=== PATIENT | female | born 1970 | race African-American/Black ===

== ENCOUNTER 2018-01-01 13:47 | Emergency (ER) | payer OTHER ==
[2018-01-01 14:03] VITALS: BP 143/78; PULSE 65; TEMP 98.1; BMI 30.2
--- NOTE | 2018-01-01 14:22 | PDOC ---
Suture Removal/Wound Check HPI - History of Present Illness Chief Complaint: Revisit,Wound Recheck Stated Complaint: PACKAGE DRESSING Time Seen by Provider: 01/01/18 14:07 History Source: Yes: Patient Exam Limitations: Yes: No Limitations Treated at: [facility] Date of Last ED visit: 12/30/17 - Previous ED Treatment Type of procedure performed on last visit: Yes: I&D of Abscess Tetanus Immunization: Yes: Up to Date Antibiotics Prescribed: No Past History - Past Medical History Allergies/Adverse Reactions: Allergies Allergy/AdvReac Type Severity Reaction Status Date / Time aspirin Allergy Severe Difficulty Verified 12/30/17 12:51 Breathing Home Medications: Ambulatory Orders Quetiapine Fumarate [Seroquel -] 25 mg PO HS 02/21/14 Mirtazapine [Remeron -] 5 mg PO DAILY 12/30/17 Oxycodone HCl/Acetaminophen [Percocet 5-325 mg Tablet] 1 - 2 tab PO BID Asthma: Yes Cardiac Disorders: Yes (dextrocardia, murmur) COPD: No - Immunization History Immunization Up to Date: Yes - Suicide/Smoking/Psychosocial Hx Smoking History: Current every day smoker Have you smoked in the past 12 months: Yes Number of Cigarettes Smoked Daily: 10 Information on smoking cessation initiated: Yes 'Breaking Loose' booklet given: 01/01/18 Hx Alcohol Use: No Drug/Substance Use Hx: No Substance Use Type: None Suture Removal/Wound Check PE - Physical Exam Laceration/Wound Check Symptoms: reports: None Current Severity Level: None Maximum Severity Level: None Pain Localization: None *Review of Systems - Review of Systems Constitutional: No: Symptoms Reported Integumentary: No: Symptoms Reported, Erythema All Other Systems: Reviewed and Negative Medical Decision Making - Medical Decision Making 01/01/18 14:23 There is a 1 cm opening to right axilla with no surrounding erythema, no warmth , no induration no evidence of a cellulitis. 1 inch packing removed without difficulty. Not requiring further packing no drainage noted, Dry dressing applied. Follow-up care instructions given to patient. 01/01/18 14:23 Culture primary plates with no evidence of growth, broth will be sub cultured. 01/01/18 16:21 *DC/Admit/Observation/Transfer Diagnosis at time of Disposition: Encounter for wound re-check - Discharge Dispostion Disposition: HOME Condition at time of disposition: Stable Admit: No - Referrals Referrals: Zuhair Huff MD [Primary Care Provider] - - Patient Instructions Printed Discharge Instructions: DI for Wound Infection Additional Instructions: Please monitor for any increased redness swelling or signs of infection If any of the above return to ER - Post Discharge Activity
== END 2018-01-01 14:37 | disposition home or self-care (01) ==
LOC: JERFT 13:47
DX: Z48.01 Encounter for change or removal of surgical wound dressing (principal)
CPT/HCPCS: 99281-25

== ENCOUNTER 2019-01-27 22:48 | Emergency (ER) | payer OTHER ==
[2019-01-27 23:06] VITALS: BP 98/54; PULSE 79; TEMP 98.3; BMI 25.9
--- NOTE | 2019-01-28 | PDOC ---
History of Present Illness - General Chief Complaint: Abscess Boil Stated Complaint: BOIL Time Seen by Provider: 01/27/19 23:59 - History of Present Illness Initial Comments: Amy Ogden is a 48yo woman with a PMH of HLD, sciatica, and several previous abscesses who presents with a "boil" on the left labia majora. She went to urgent care 6 days ago and was told to use warm compresses over the area , which she has been doing 2-3 times per day. She says that since starting the compresses, the pain and swelling has gotten worse. She has not noticed any drainage or bleeding from the area. She denies fevers, chills, spreading redness , or red streaking from the area. She states that the pain is so severe at this point that she is unable to walk normally. She has had several abscesses in the past but never any in the groin; previously they were located in the groin crease and axilla. Past History - Past Medical History Allergies/Adverse Reactions: Allergies Allergy/AdvReac Type Severity Reaction Status Date / Time aspirin Allergy Severe Difficulty Verified 12/30/17 12:51 Breathing Home Medications: Ambulatory Orders Quetiapine Fumarate [Seroquel -] 25 mg PO HS 02/21/14 Mirtazapine [Remeron -] 5 mg PO DAILY 12/30/17 Oxycodone HCl/Acetaminophen [Percocet 5-325 mg Tablet] 1 - 2 tab PO BID Asthma: Yes Cardiac Disorders: Yes (dextrocardia, murmur) COPD: No - Immunization History Immunization Up to Date: Yes - Suicide/Smoking/Psychosocial Hx Smoking History: Current every day smoker Have you smoked in the past 12 months: Yes Number of Cigarettes Smoked Daily: 24 Information on smoking cessation initiated: No 'Breaking Loose' booklet given: 01/01/18 Hx Alcohol Use: No Drug/Substance Use Hx: No Substance Use Type: None Review of Systems - Review of Systems Comments:: General: No fevers, no chills, no weight or appetite change, no malaise HEENT: No changes in vision, no changes in hearing, no congestion, no sore throat CV: No chest pain, no palpitations, no LE edema Pulm: No SOB, no cough, no wheezing GI: No nausea or vomiting, no change in bowel habits, no melena : No frequency, no urgency, no dysuria. +Boil, see HPI Musc: No back pain, no joint swelling, no recent injury Skin: No rash, no lesions, no erythema Endo: No excessive thirst, no heat/cold intolerance Heme: No unusual bruising or bleeding, no swollen glands Neuro: No syncope, no numbness/tingling, no focal weakness Vasc: No claudication Psych: No recent change in mood, no SI or HI *Physical Exam - Vital Signs Last Vital Signs Temp Pulse Resp BP Pulse Ox 98.3 F 79 19 98/54 L 100 01/27/19 23:03 01/27/19 23:03 01/27/19 23:03 01/27/19 23:03 01/27/19 23:03 - Physical Exam Comments: General: Uncomfortable but in no acute distress HEENT: PERRL, EOMI, MMM, voice normal Cards: RRR, no murmur appreciated Pulm: Comfortable on room air Abd: Soft, nontender, nondistended Pelvic: Posterior left labia majora w/ quarter-sized abscess w/o drainage or bleeding. Overlying erythema, induration but no erythema in surrounding tissue. Swelling located more laterally in labia; no abscess/swelling/erythema on mucosal surface Ext: Atraumatic. No LE edema. ROM intact. Vasc: Extremities WWP. Neuro: A&Ox3, CN grossly intact, normal speech, motor/sensory grossly intact and symmetric Psych: Mood appropriate to situation Medical Decision Making - Medical Decision Making 01/28/19 00:24 Amy Ogden is a 48yo woman with a PMH of HLD, sciatica, and several previous abscesses who presents with a left posterior labial abscess. - Exam c/w abscess on left labia majora. No mucosal surface involvement, unlikely to be bartholin's - Plan to drain abscess at bedside 01/28/19 01:10 - Left labial abscess drained at bedside. The area was thoroughly cleaned with chlorhexadine and allowed to dry. 3cc of 1% lidocaine was used to anesthetize the abscess with a field block. A 15 blade scalpel was used to make an approximately 1cm incision in the center of the abscess with immediate expression of 1-2cc of liliya pus and some purulent bloody fluid. The interior of the abscess was explored with a cotton swab to ensure there were no secondary , loculated areas. Clean gauze was placed over the incision for any continued bleeding or drainage. - Home care instructions were discussed with Ms Ogden at length including use of acetaminophen/ibuprofen for pain control, warm compresses, and sitz baths. She will follow up with Dr Huff. Seen with Dr Lundberg. Merary Branhamabe PGY1 *DC/Admit/Observation/Transfer Diagnosis at time of Disposition: Abscess of labia majora - Discharge Dispostion Disposition: HOME Condition at time of disposition: Stable Decision to Admit order: No - Referrals Referrals: Zuhair Huff MD [Primary Care Provider] - - Patient Instructions Printed Discharge Instructions: DI for Incision and Drainage of a Skin Abscess Additional Instructions: Discharge Instructions: You were seen in the emergency department for an abscess. The abscess was drained. Home Care and Follow Up: - You may use over the counter medications as needed for pain at home. 650- 1000mg acetaminophen (Tylenol) or 600mg ibuprofen (Motrin or Advil) can be used every 6-8 hours. If needed for continued pain, these medications may be alternated every 3-4 hours. For example, if you take ibuprofen at 9am, you may take acetaminophen at noon, ibuprofen at 3pm, etc. - It is strongly recommended that you take ibuprofen with food to help prevent stomach irritation. If you are taking it for more than a day or two, you may consider taking an acid medication such as Pepcid or Xantac, available over the counter, to protect your stomach. This should be taken first thing in the morning 30-60 minutes before any food or medications. - You will probably have continued drainage and some bleeding from the abscess for the next few days. Use a menstrual pad or dry gauze for any drainage. - Continue to use warm compresses over the area of the abscess until your symptoms resolve - Soak in a sit bath for 5-10 minutes at least 3 times per day. Fill the tub or a basin with plain warm water, deep enough to cover your abscess. Sit in the water and soak the affected area. This will help keep the area clean and help with pain and healing. - If your pain does not improve over the next week, see your regular doctor for follow up. - Seek immediate medical care if you have significant worsening of your symptoms , increased pain and redness around the abscess, develop fever to 101F, have red streaking from the abscess, or you have any other medical emergency. - Post Discharge Activity
--- NOTE | 2019-01-28 00:39 | PDOC ---
Attending Attestation - Resident Resident Name: Merary Ortiz - ED Attending Attestation I have performed the following: I have examined & evaluated the patient, The case was reviewed & discussed with the resident, I agree w/resident's findings & plan, Exceptions are as noted - HPI HPI: 01/28/19 00:36 48yo F hx HL, sciatica, previous vaginal "boils" presents to ED with L labial abscess x6 days. Went to urgent care 6 days ago and they recommended warm compresses. She states since then, the boil has come to a head and has become very painful. Denies bleeding or drainage. She does shave the area. Has had previous abscesses in the groin and in the axilla that resolved with drainage. Tried tylenol for pain with minimal relief. DEnies fevers, chills, N/V/D. Denies CP, SOB, headache, weakness/numbness, dizziness. +Social etoh and weekly marijuana use - Physicial Exam PE: 01/28/19 00:48 agree with resident exam - Medical Decision Making 01/28/19 00:48 48yo F presents to the ED with L labial abscess, not in bartholin gland area. No systemic signs of infection. Vitals with mildly low BP, although pt states her BP is usually in 90s/60s Plan for I&D with local anesthesia 01/28/19 01:35 I&D with purulent drainage (see Dr. Ortiz's note) Pt feels better, rpt BP 127/81 Clinically stable for DC home with PMD f/u I discussed the physical exam findings, ancillary test results and final diagnoses with the patient. I answered all of the patient's questions. The patient was satisfied with the care received and felt comfortable with the discharge plan and treatment plan. The patient will call their primary care physician within 24 hours to arrange follow-up and will return to the Emergency Department with any new, persistent or worsening symptoms.
[2019-01-28] MEDS ORDERED: LIDOCAINE HCL 1%, 10 MG/ML (50 mL VIAL) SQ ONE (00:47)
[2019-01-28] MEDS ORDERED: LIDOCAINE HCL 1%, 10 MG/ML (20ML VIAL) ONE (00:49)
[2019-01-28] MEDS ORDERED: ACETAMINOPHEN 325 MG TABLET (FP) PO ONE (01:13)
[2019-01-28] MEDS ORDERED: ACETAMINOPHEN 325 MG TABLET (FP) ONE (01:33)
== END 2019-01-28 02:03 | disposition home or self-care (01) ==
LOC: JER 22:48
PROC: 0U9M0ZZ Drainage of Vulva, Open Approach (ICD-10-PCS; principal; 2019-01-27)
DX: N76.4 Abscess of vulva (principal)
CPT/HCPCS: 56405; 99281-25

== ENCOUNTER 2019-06-12 01:48 | Emergency (ER) | payer OTHER ==
[2019-06-12 02:10] VITALS: BP 102/71; PULSE 75; TEMP 98.3; BMI 25.2
--- NOTE | 2019-06-12 02:56 | PDOC ---
History of Present Illness - General Chief Complaint: Abscess Boil Stated Complaint: PAIN/RECTAL PROBLEM Time Seen by Provider: 06/12/19 02:56 History Source: Patient - History of Present Illness Initial Comments: 06/12/19 03:03 49 year old female with PMH of HLD, sciatica, and several previous abscesses c/ o buttocks abscess. patient started on bactrim by Sleep Tech Dr. schaefer 3 days ago. reports that abscess is big and unable to sit due to pain. denies fever/chills. 06/12/19 04:07 Past History - Past Medical History Allergies/Adverse Reactions: Allergies Allergy/AdvReac Type Severity Reaction Status Date / Time aspirin Allergy Severe Difficulty Verified 06/12/19 02:10 Breathing Home Medications: Ambulatory Orders Quetiapine Fumarate [Seroquel -] 25 mg PO HS 02/21/14 Mirtazapine [Remeron -] 5 mg PO DAILY 12/30/17 Oxycodone HCl/Acetaminophen [Percocet 5-325 mg Tablet] 1 - 2 tab PO BID Clindamycin [Cleocin -] 150 mg PO Q6H #40 capsule 06/12/19 Asthma: Yes Cardiac Disorders: Yes (dextrocardia, murmur) COPD: No - Immunization History Immunization Up to Date: Yes - Psycho Social/Smoking Cessation Hx Smoking History: Current every day smoker Have you smoked in the past 12 months: Yes Number of Cigarettes Smoked Daily: 20 Information on smoking cessation initiated: Yes 'Breaking Loose' booklet given: 01/01/18 Hx Alcohol Use: No Drug/Substance Use Hx: No Substance Use Type: None Review of Systems - Review of Systems Able to Perform ROS?: Yes Is the patient limited [place] proficient: No Constitutional: No: Symptoms Reported, See HPI, Chills, Diaphoresis, Fever, Loss of Appetite, Malaise, Night Sweats, Weakness, Weight Stable, Unintentional Wgt. Loss, Unexplained wgt Loss, Other Musculoskeletal: No: Symptoms Reported, See HPI, Back Pain, Gout, Joint Pain, Joint Swelling, Muscle Pain, Muscle Weakness, Neck Pain, Joint Stiffness, Other Integumentary: Yes: Other (abscess). No: Symptoms Reported, See HPI, Bruising, Change in Color, Change in Hair/Nails, Dryness, Erythema, Flushing, Lesions, Lumps, Pallor, Pruritus, Rash, Sweating *Physical Exam - Vital Signs Last Vital Signs Temp Pulse Resp BP Pulse Ox 98.3 F 75 18 102/71 99 06/12/19 02:08 06/12/19 02:08 06/12/19 02:08 06/12/19 02:08 06/12/19 02:08 - Physical Exam General Appearance: Yes: Appropriately Dressed Rectal Exam: positive: normal exam, normal rectal tone, other (no pain with rectal exam. right buttocks fluctuant olive size mass. ) Procedures - Consent Consent obtained: Verbal - Incision and Drainage I&D Site: Right: Buttock Betadine cleansed: Yes Anesthesia: 1% Lidocaine Volume(ml): 2 (thick yellow pus drainage) Blade Size: 11 Iodinated Packin/ in Plain Packing: Yes Complications: none Dressing: Yes Progress: 06/12/19 06:50 packing placed. patient is advised to return for wound check in 2 days. antibiotics changed to clindamycin ED Progress Note - Progress Note Progress Note: 06/12/19 04:11 A: right buttock abscess P: see procedure notes 06/12/19 06:50 Discharge - Discharge Information Problems reviewed: Yes Clinical Impression/Diagnosis: Abscess of buttock, right - Additional Discharge Information Prescriptions: Clindamycin [Cleocin -] 150 mg PO Q6H #40 capsule - Follow up/Referral Referrals: Zuhair Huff MD [Primary Care Provider] - - Patient Discharge Instructions Patient Printed Discharge Instructions: DI for Incision and Drainage of a Skin Abscess Additional Instructions: apply warm compress to the area retun in 2 days for a wound check - Post Discharge Activity Work/Back to School Note: Back to Work
--- NOTE | 2019-06-12 02:58 | PDOC ---
*Physical Exam - Vital Signs Last Vital Signs Temp Pulse Resp BP Pulse Ox 98.3 F 75 18 102/71 99 06/12/19 02:08 06/12/19 02:08 06/12/19 02:08 06/12/19 02:08 06/12/19 02:08 Medical Decision Making - Medical Decision Making 06/12/19 02:58 Patient seen by the advanced practice provider under my direct supervision. Ancillary testing reviewed as necessary. I agree with plan as outlined by the advanced practice provider. Discharge - Discharge Information Problems reviewed: Yes Clinical Impression/Diagnosis: Abscess of buttock, right - Additional Discharge Information Prescriptions: Clindamycin [Cleocin -] 150 mg PO Q6H #40 capsule - Follow up/Referral Referrals: Zuhair Huff MD [Primary Care Provider] - - Patient Discharge Instructions Patient Printed Discharge Instructions: DI for Incision and Drainage of a Skin Abscess Additional Instructions: apply warm compress to the area retun in 2 days for a wound check - Post Discharge Activity Work/Back to School Note: Back to Work
== END 2019-06-12 04:47 | disposition home or self-care (01) ==
LOC: JER 01:48
PROC: 0J990ZZ Drainage of Buttock Subcutaneous Tissue and Fascia, Open Approach (ICD-10-PCS; principal; 2019-06-12)
DX: L02.31 Cutaneous abscess of buttock (principal); Z88.6 Allergy status to analgesic agent
CPT/HCPCS: 10060; 87070; 87186; 87205; 99282-25

== ENCOUNTER 2019-10-20 15:36 | Emergency (ER) | payer OTHER ==
[2019-10-20 15:53] VITALS: BP 104/63; PULSE 63; TEMP 98.1; BMI 20.1
--- NOTE | 2019-10-20 17:21 | PDOC ---
History of Present Illness - General Chief Complaint: Pain, Acute Stated Complaint: URINARY PROBLEM History Source: Patient Exam Limitations: No Limitations - History of Present Illness Initial Comments: 10/20/19 17:14 Patient is a 49 year old female with h/o HLD, ovarian cyst, abscess - MRSA, psychiatric problems c/o anal itching x 5 months 40 lbs loss in 6 months. Patient states she has been to her doctor's several times for this and was given on anti-itch cream for the rectum with no improvement in symptoms. Patient states that she thinks that she has worms and has been on 3 courses of worm medicine despite not seeing any worms per rectum. However after these courses she still continues to have itching to the anus. She states that her doctor has drawn blood work x2 and has returned with normal results. She is concerned that she still has worms or she has some GI issues. She has normal bowel movement no rectal bleeding. She is also concerned that she could have MRSA in her rectum. She has also seen [facility] SU[facility] COORDINATOR for the issue and had a normal exam. She denies fever, chills, nausea, vomiting, abdominal pain, rectal bleeding. Patient is interested in receiving referral to GI and to infectious diseases. PMD: Dr. Ferrer PMHX: as above PSOCHX: (+) cig 1ppd, (-) etoh, (-) drug ALL: ASA GENERAL/CONSTITUTIONAL: [No fever or chills. No weakness. No weight change.] HEAD, EYES, EARS, NOSE AND THROAT: [No change in vision. No ear pain or discharge. No sore throat.] CARDIOVASCULAR: [No chest pain or shortness of breath.] RESPIRATORY: [No cough, wheezing, or hemoptysis.] GASTROINTESTINAL: [No nausea, vomiting, diarrhea or constipation. No rectal bleeding.] GENITOURINARY: [No dysuria, frequency, or change in urination.] MUSCULOSKELETAL: [No joint or muscle swelling or pain. No neck or back pain.] SKIN AND BREASTS: [No rash or easy bruising.] NEUROLOGIC: [No headache, vertigo, loss of consciousness, or loss of sensation.] PSYCHIATRIC: [No depression or anxiety.] ENDOCRINE: [No increased thirst. No abnormal weight change.] HEMATOLOGIC/LYMPHATIC: [No anemia, easy bleeding, or history of blood clots.] ALLERGIC/IMMUNOLOGIC: [No hives or skin allergy. No latex allergy.] GENERAL: [The patient is awake, alert, and fully oriented, in no acute distress. ] HEAD: [Normal with no signs of trauma.] EYES: [Pupils equal, round and reactive to light, extraocular movements intact, sclera anicteric, conjunctiva clear.] ENT: [Ears normal, nares patent, oropharynx clear without exudates. Moist mucous membranes.] NECK: [Normal range of motion, supple without lymphadenopathy, JVD, or masses.] LUNGS: [Breath sounds equal, clear to auscultation bilaterally. No wheezes, and no crackles.] HEART: [Regular rate and rhythm, normal S1 and S2 without murmur, rub.] ABDOMEN: [Soft, nontender, normoactive bowel sounds. No guarding, no rebound. No masses.] RECTUM: Small hemorrhoid externally nontender, no bleeding not thrombosed, no worms noted, no tenderness in this rectally, no hemorrhoids internally, no bleeding. EXTREMITIES: [Normal range of motion, no edema. No clubbing or cyanosis. No cords, erythema, or tenderness.] NEUROLOGICAL: [Cranial nerves II through XII grossly intact. Normal speech, normal gait.] PSYCH: [Normal mood, normal affect.] SKIN: [Warm, Dry, normal turgor, no rashes or lesions noted.] Past History - Past Medical History Allergies/Adverse Reactions: Allergies Allergy/AdvReac Type Severity Reaction Status Date / Time aspirin Allergy Severe Difficulty Verified 10/20/19 15:45 Breathing Home Medications: Ambulatory Orders Quetiapine Fumarate [Seroquel -] 25 mg PO HS 02/21/14 Mirtazapine [Remeron -] 7.5 mg PO DAILY 12/30/17 Albuterol Sulfate Inhaler - [Ventolin Hfa Inhaler -] 1 - 2 inh PO Q4H PRN Budesonide [Pulmicort Flexhaler] 1 dose IN DAILY 10/20/19 Cyclobenzaprine HCl [Flexeril -] 10 mg PO HS 10/20/19 Cyproheptadine [Periactin -] 4 mg PO HS 10/20/19 Rosuvastatin Calcium [Crestor] 20 mg PO HS 10/20/19 Asthma: Yes Cardiac Disorders: Yes (dextrocardia, murmur) COPD: No - Immunization History Immunization Up to Date: Yes - Psycho Social/Smoking Cessation Hx Smoking History: Current every day smoker Have you smoked in the past 12 months: Yes Number of Cigarettes Smoked Daily: 20 Information on smoking cessation initiated: No 'Breaking Loose' booklet given: 01/01/18 Hx Alcohol Use: No Drug/Substance Use Hx: No Substance Use Type: None *Physical Exam - Vital Signs Last Vital Signs Temp Pulse Resp BP Pulse Ox 98.1 F 63 16 104/63 99 10/20/19 15:51 10/20/19 15:51 10/20/19 15:51 10/20/19 15:51 10/20/19 15:51 Medical Decision Making - Medical Decision Making 10/20/19 17:14 Patient is a 49 year old female with h/o HLD, ovarian cyst, abscess - MRSA c/o anal itching x 5 months 40 lbs loss in 6 months. Patient states she has been to her doctor's several times for this and was given on anti-itch cream for the rectum with no improvement in symptoms. Patient states that she thinks that she has worms and has been on 3 courses of worm medicine despite not seeing any worms per rectum. However after these courses she still continues to have itching to the anus. She states that her doctor has drawn blood work x2 and has returned with normal results. She is concerned that she still has worms or she has some GI issues. She has normal bowel movement no rectal bleeding. She is also concerned that she could have MRSA in her rectum. She has also seen [facility] SU[facility] COORDINATOR for the issue and had a normal exam. She denies fever, chills, nausea, vomiting, abdominal pain, rectal bleeding. Patient is interested in receiving referral to GI and to infectious diseases. Patient has a normal exam and no need for any radiological studies or further work-up in the emergency room. Will refer patient to GI and infectious diseases. I discussed the physical exam findings, ancillary test results and final diagnoses with the patient. I answered all of the patient's questions. The patient was satisfied with the care received and felt comfortable with the discharge plan and treatment plan. The Patient agrees to follow up with the primary care physician within 24-72 hours. Discharge - Discharge Information Problems reviewed: Yes Clinical Impression/Diagnosis: Anal itching Condition: Stable Disposition: HOME - Follow up/Referral Referrals: Zuhair Huff MD [Primary Care Provider] - Benny Dimas MD [Staff Physician] - Ngozi Bermudez MD [Staff Physician] - - Patient Discharge Instructions Additional Instructions: Your Discharge Instructions: You must call primary care physician within 24 hours to arrange follow-up. Return to the Emergency Department with any new, persistent or worsening symptoms, for fever, chills, SOB, dizziness or any other concerning changes that may occur. Follow-up with GI, call for an appointment in 48 hours. We have provided you with a referral for infectious diseases, call for an appointment. - Post Discharge Activity
== END 2019-10-20 17:50 | disposition home or self-care (01) ==
LOC: JER 15:36
DX: L29.0 Pruritus ani (principal); E78.5 Hyperlipidemia, unspecified; N83.209 Unspecified ovarian cyst, unspecified side; Z86.14 Personal history of Methicillin resistant Staphylococcus aureus infection; R00.2 Palpitations; R01.1 Cardiac murmur, unspecified; F17.210 Nicotine dependence, cigarettes, uncomplicated; Z88.6 Allergy status to analgesic agent
CPT/HCPCS: 99281-25

== ENCOUNTER 2021-02-20 04:27 | Day surgery (SDC) | payer OTHER ==
[2021-02-19 14:05] VITALS: BMI 25.2
[2021-02-20] MEDS ORDERED: DEXAMETHASONE SOD PHOSPHATE 10 MG/1 ML VIAL ONE (07:30)
[2021-02-20] MEDS ORDERED: DEXAMETHASONE SOD PHOSPHATE 4 MG/1 ML VIAL IVPUSH ONE ×3 (10:31→11:00)
[2021-02-20] MEDS ORDERED: IOHEXOL 180 MG/1 ML ML IJ ONE ×3 (10:31→10:58)
[2021-02-20] MEDS ORDERED: LIDOCAINE 1% P/F 10 MG/ML VIAL INF ONE ×3 (10:32→10:48)
[2021-02-20 12:25] VITALS: BP 113/78; PULSE 73; TEMP 98.9
== END 2021-02-20 11:20 | disposition home or self-care (01) ==
LOC: JASU-SURG 04:27
PROVIDERS: ATTEND Pain Medicine Pain Medicine
PROC: 3E0R33Z Introduction of Anti-inflammatory into Spinal Canal, Percutaneous Approach (ICD-10-PCS; 2021-02-20)
PROC: 3E0R3BZ Introduction of Anesthetic Agent into Spinal Canal, Percutaneous Approach (ICD-10-PCS; principal; 2021-02-20 10:48)
DX: M54.16 Radiculopathy, lumbar region (principal)
CPT/HCPCS: 76000-TC-FY; 81025; J1100

== ENCOUNTER → 2021-04-03 | Day surgery (SDC) | payer OTHER ==
[2021-04-02 14:38] VITALS: BMI 25.2
[~2021-04-03] MED LIST: DEXAMETHASONE SOD PHOSPHATE 4 MG/1 ML VIAL ONE; LIDOCAINE HCL/PF 1% SDV 5ML VIAL ONE; TRIAMCINOLONE ACET 40MG/1ML VIAL ONE
== END | disposition home or self-care (01) ==
LOC: JASU-SURG 04:19
PROVIDERS: ATTEND Pain Medicine Pain Medicine
DX: Z53.8 Procedure and treatment not carried out for other reasons (principal)